=== PATIENT | female | born 1960 | race Caucasian/White ===

== ENCOUNTER → 2019-01-22 | Outpatient (CLI) | payer BC, OTHER | LOC: RAD 02:18 | DX: Z12.31 Encounter for screening mammogram for malignant neoplasm of breast (principal) ==

== ENCOUNTER → 2020-02-11 | Outpatient (CLI) | payer BC, OTHER | LOC: LAB 12:00 | PROVIDERS: ATTEND Nurse Practitioner | DX: U07.1 COVID-19 (principal) ==

== ENCOUNTER → 2020-04-21 | Outpatient (CLI) | payer OTHER | LOC: BC 10:34 | PROVIDERS: ATTEND Nurse Practitioner | DX: Z12.31 Encounter for screening mammogram for malignant neoplasm of breast (principal) ==

== ENCOUNTER 2020-05-18 16:26 | Emergency (ER) | payer OTHER ==
[~2020-05-18] VITALS: Ht 165.1 cm; Wt 117.9 kg
[2020-05-18 16:48] VITALS: BP 209/98
[2020-05-18] MEDS ORDERED: SPIRONOLACTONE25 MG PO (16:53)
[2020-05-18] MEDS ORDERED: GLYBURIDE-METF1 EACH PO (16:54)
[2020-05-18] MEDS ORDERED: ERYTHROMYCIN E3.5 G2 OPHTHALMIC (17:31)
[2020-05-18] MEDS ORDERED: TYLENOL325 M1 PO (17:31)
[2020-05-18] MEDS ORDERED: CYCLOGYL2 ML EA. EYE (17:31)
== END 2020-05-18 17:42 | disposition home or self-care (01) ==
LOC: ER 16:26
DX: S05.01XA Injury of conjunctiva and corneal abrasion without foreign body, right eye, initial encounter (principal); I10 Essential (primary) hypertension; E78.5 Hyperlipidemia, unspecified; E11.9 Type 2 diabetes mellitus without complications; Z79.899 Other long term (current) drug therapy; Z88.8 Allergy status to other drugs, medicaments and biological substances; Z91.018 Allergy to other foods; W22.8XXA Striking against or struck by other objects, initial encounter; Y93.89 Activity, other specified; Y92.89 Other specified places as the place of occurrence of the external cause; Y99.8 Other external cause status

== ENCOUNTER 2020-08-18 07:00 | Emergency (ER) | payer OTHER ==
[~2020-08-18] VITALS: Ht 165.1 cm; Wt 119.8 kg
[~2020-08-18 07:00] MED LIST: CYCLOGYL2 ML EA. EYE; ERYTHROMYCIN E3.5 G2 OPHTHALMIC; GLYBURIDE-METF1 EACH PO; SPIRONOLACTONE25 MG PO; TYLENOL325 M1 PO
[2020-08-18] MEDS ORDERED: METFORMIN HCL500 MG PO (07:08)
[2020-08-18] MEDS ORDERED: GLYBURIDE 5 MG T5 M1 PO (07:08)
[2020-08-18] MEDS ORDERED: LIPITOR40 MG PO (07:09)
[2020-08-18] MEDS ORDERED: SPIRONOLACTONE25 MG PO (07:09)
[2020-08-18] MEDS ORDERED: BENICAR40 MG PO (07:09)
[2020-08-18] MEDS ORDERED: MOBIC15 MG PO (08:53)
[2020-08-18 09:15] VITALS: BP 174/89
== END 2020-08-18 09:16 | disposition home or self-care (01) ==
LOC: ER 07:00
DX: M25.572 Pain in left ankle and joints of left foot (principal); I10 Essential (primary) hypertension; E78.5 Hyperlipidemia, unspecified; E11.9 Type 2 diabetes mellitus without complications; Z88.1 Allergy status to other antibiotic agents; Z91.013 Allergy to seafood; Z91.018 Allergy to other foods; Z98.51 Tubal ligation status

== ENCOUNTER → 2021-04-24 | Outpatient (CLI) | payer OTHER ==
[~2021-04-24] MED LIST changes: +BENICAR40 MG PO; +GLYBURIDE 5 MG T5 M1 PO; +LIPITOR40 MG PO; +METFORMIN HCL500 MG PO; +MOBIC15 MG PO
== END ==
LOC: BC 08:52
PROVIDERS: ATTEND Family Medicine
DX: Z12.31 Encounter for screening mammogram for malignant neoplasm of breast (principal)